=== PATIENT | female | born 1980 ===

== ENCOUNTER 2020-03-02 21:27 | Emergency (ER) | payer OTHER, SELFPAY ==
--- NOTE | 2020-03-02 21:44 | PC.NURSE ---
Patient is sitting in room 13. [employer] is in the room with the patient.
[2020-03-02 21:51] VITALS: BP 145/76; PULSE 104; RESP 16; O2SAT 100
[2020-03-02 21:52] VITALS: TEMP 36.8
[2020-03-02 22:02] LABS: Ur Creatinine 20 (Normal); Ur Specific Gravity 1.025 (Normal); Urine pH 5 (Normal)
[2020-03-02 22:04] LABS: UR Morphine/Opiate cutoff 300 Negative (Negative); Urine Amphetamines Negative (Negative); Urine Barbiturates Negative (Negative); Urine Benzodiazepines Negative (Negative); Urine Cocaine Negative (Negative); Urine MDMA Negative (Negative); Urine Methadone Negative (Negative); Urine Methamphetamines Negative (Negative); Urine Oxycodone Negative (Negative); Urine Phencyclidine Negative (Negative); Urine Tetrahydrocannabinol Negative (Negative); Urine Tricyclic Antidepressant Positive (Negative)
--- NOTE | 2020-03-02 22:18 | PC.NURSE ---
Patient is sitting up on the bed in room 13. She is calm and compliant. She currently has warm blankets.
[2020-03-02 22:26] LABS: Acetaminophen < 10 ug/mL (10-30); Alanine Aminotransferase 9 IU/L (<35); Albumin 3.7 g/dL (3.5-5.0); Albumin Globulin Ratio 1.3 (1.0-2.8); Alkaline Phosphatase 67 U/L (38-126); Aspartate Aminotransferase 26 IU/L (14-36); BUN Creatinine Ratio 18.6 (6-22); Bilirubin Total 0.4 mg/dL (0.2-1.3); Blood Urea Nitrogen 13 mg/dL (7-17); Calcium 8.4 mg/dL (8.4-10.2); Carbon Dioxide 22 mmol/L (22-32); Chloride 107 mmol/L (98-107); Estimated Glomerular Filt Rate > 60.0 mL/min (>60); Ethanol (ETOH) < 10 mg/dL; Globulin 2.8 g/dL (1.7-4.1); Glucose 118 mg/dL (70-100); HEMOLYSIS < 15 (0-50); Potassium 4.3 mmol/L (3.4-5.1); Salicylate < 1.0 mg/dL (<20); Sodium 135 mmol/L (137-145); Total Protein 6.5 g/dL (6.3-8.2)
--- NOTE | 2020-03-02 22:28 | PC.NURSE ---
Pt speaking calmly with mother on the phone. Maggie: [phone]
[2020-03-02 22:29] LABS: Hematocrit 25.1 % (36-46); Hemoglobin 7.8 g/dL (12.0-16.0); Mean Corpuscular HGB Conc 31.1 % (30-36); Mean Corpuscular Hemoglobin 21.8 PG (26-34); Mean Corpuscular Volume 70.2 fL (80-100); Platelet Count 252 X10^3/uL (150-400); Red Blood Cell Count 3.58 X10^6/uL (4.0-5.2); Red Cell Distribution Width 26.3 % (11.6-14.8); White Blood Cell Count 13.1 X10^3/uL (4.5-11.0)
[2020-03-02 22:30] LABS: Add Manual Diff / Slide Review YES
--- NOTE | 2020-03-02 22:58 | PC.NURSE ---
Pt. standing in the doorway of her room, looking towards the ambulance bay doors.
[2020-03-02 23:03] LABS: Free T4, Direct Thyroxine 0.61 ng/dL (0.78-2.19)
[2020-03-02 23:20] LABS: Thyroid Stimulating Hormone 1.83 uIU/mL (0.47-4.68)
--- NOTE | 2020-03-02 23:20 | PC.NURSE ---
Verified with Dr. Cueto that all PO doses of Prazosin and Seroquel were appropriate.
--- NOTE | 2020-03-02 23:23 | ED_ITS ---
HPI - Psych <Rudy Cueto DO - Last Filed: 03/03/20 21:39> General Chief Complaint: Psychiatric Symptoms Stated Complaint: brought by police Time Seen by Provider: 03/02/20 21:30 Source: patient and police Mode of arrival: Ambulatory Limitations: no limitations History of Present Illness HPI Narrative: 39F smoker with extensive mental health and self harm history as well as anemia presents with police for JUAN. She cut herself in her left arm multiple times and also was trying to drive to the bridge to jump in an effort to kill herself. She cuts herself frequently and states that her hemoglobin often runs in the sevens but it dropped into the 5s are 6 is a few weeks ago and she required a transfusion. She is not dizzy nor weak or lightheaded. She denies any chest pain or shortness of breath. Through nursing I have been told that her trigger is a recent legal case in which she was apparently charged with felony assault. She is under the care of a mental health provider at the [place] and speaks to him weekly. She's been taking her medications as directed. She continues to feel suicidal and states that if she leaves she will jump of the bridge. MD complaint: suicidal ideation and feels depressed Onset (ago): hour(s) Duration: intermittent History of same: Yes Relieving factors: none Exacerbating factors: other Context: significant life stressor Associated psychiatric symptoms: depression and suicidal ideation Associated symptoms: denies other symptoms Treatments prior to arrival: placed on mental health hold If self harm: admits thoughts of self harm, has plan, has acted on plan and self-inflicted trauma Related Data Allergies Allergy/AdvReac Type Severity Reaction Status Date / Time No Known Drug Allergies Allergy Verified 03/03/20 00:29 Review of Systems <Rudy Cueto DO - Last Filed: 03/03/20 21:39> Constitutional Constitutional: Denies chills, Denies fatigue, Denies fever(s), Denies frequent falls, Denies lethargy and Denies weakness Eyes Eyes: Denies change in vision, Denies eye discharge, Denies irritation and Denies loss of vision ENT Ears, Nose, Mouth, and Throat: Denies change in voice, Denies dizziness, Denies neck pain, Denies sore throat and Denies throat swelling Cardiovascular Cardiovascular: Denies chest pain, Denies irregular heart rhythm, Denies lightheadedness, Denies palpitations, Denies dyspnea, Denies dyspnea on exertion and Denies orthopnea Respiratory Respiratory: Denies cough, Denies dyspnea, Denies dyspnea on exertion and Denies wheezing Gastrointestinal Gastrointestinal: Denies abdominal pain, Denies change in bowel habits, Denies diarrhea, Denies nausea and Denies vomiting Musculoskeletal Musculoskeletal: Denies neck pain and Denies numbness Integumentary/Breasts Skin/Breast: Denies pruritus, Denies erythema, Denies rash and Reports wounds Neurologic Neurologic: Denies behavioral changes, Denies confusion, Denies dizziness, Denies frequent falls, Denies loss of vision, Denies numbness and Denies weakness Psychiatric Psychiatric: Denies anxiety, Denies behavioral changes, Denies confusion, Re ports depression, Denies homicidal ideation and Reports suicidal ideation Endocrine Endocrine: Denies fatigue, Denies flushing and Denies palpitations Hematologic/Lymphatic Hematologic/Lymphatic: Denies easy bruising Allergic/Immunologic Allergic/Immunologic: Denies urticaria, Denies throat swelling and Denies wheezing Patient History <Rudy Cueto DO - Last Filed: 03/03/20 21:39> Social History Smoking Status: Current every day smoker Smoking Status: Current every day smoker Substance Use Type: does not use Exam <Rudy Cueto DO - Last Filed: 03/03/20 21:39> Narrative Exam Narrative: GENERAL: [39] year old patient appears stated age. Flat affect. Well-nourished, well-developed patient, in mild distress. HEAD: Atraumatic. Normocephalic. EYES: Pupils equal round and reactive. Extraocular motions intact. No scleral icterus. No injection or drainage. ENT: Nose without bleeding, purulent drainage. Throat without erythema, tonsillar hypertrophy or exudate. Airway patent. NECK: Trachea midline. Non tender CARDIOVASCULAR: Regular rate and rhythm without murmurs, gallops, or rubs. RESPIRATORY: Clear to auscultation. Breath sounds equal bilaterally. No wheezes, rales, or rhonchi. GASTROINTESTINAL: Abdomen soft, non-tender, nondistended. EXTREMITIES: innumerable cuts on volar left forearm. No active bleeding. No visualized foreign bodies. No obvious involvement of deep structures. Patient remains N/V intact with full ROM and strength of fingers and wrist. Soft kait rments.. BACK: Nontender without deformity or crepitance. No flank tenderness. NEURO: AOx3. SKIN: No rash or erythema of visible areas Initial Vital Signs Initial Vital Signs: Vital Signs Pulse Rate 104 H 03/02/20 21:51 Respiratory Rate 16 03/02/20 21:51 Blood Pressure 145/76 H 03/02/20 21:51 Pulse Oximetry 100 03/02/20 21:51 <Tracy Garza, DO - Last Filed: 03/03/20 13:09> Initial Vital Signs Initial Vital Signs: Vital Signs Pulse Rate 104 H 03/02/20 21:51 Respiratory Rate 16 03/02/20 21:51 Blood Pressure 145/76 H 03/02/20 21:51 Pulse Oximetry 100 03/02/20 21:51 Course <Rudy Cueto DO - Last Filed: 03/03/20 21:39> Course Course Narrative: 2345 - patient night meds ordered, she was hitting her head on the wall and was able to be redirected to her bed, with the promise of her upcoming medications. Her labs and recent visit to [facility] have been requested 0600 - patient with stable H/H at her baseline. No active bleeding. She is resting comfortably. Still suicidal with plan. She is medically cleared for [facility] dispatch. In my opinion she will need hospitalization for stabilization of her condition Orders Ordered: Discontinued Medications Clonazepam (Clonazepam 0.5 Mg Tablet) 1 mg PO NOW ONE Stop: 03/02/20 23:24 Last Admin: 03/03/20 00:27 Dose: Not Given Documented by: JULITO Lorazepam (Lorazepam 2 Mg/Ml Inj) 1 mg IM NOW ONE Stop: 03/02/20 23:52 Last Admin: 03/02/20 23:40 Dose: 1 mg Documented by: JULITO Prazosin HCl (Prazosin 1 Mg Capsule) 5 mg PO BEDTIME [facility] Last Admin: 03/02/20 23:51 Dose: 5 mg Documented by: JULITO Quetiapine Fumarate (Quetiapine 100 Mg Tablet) 600 mg PO BEDTIME [facility] Last Admin: 03/03/20 00:26 Dose: 600 mg Documented by: JULITO Vital Signs Vital signs: Vital Signs - 8 hr 03/03/20 06:30 12/19/20 09:19 03/03/20 09:30 Pulse Rate 96 H 87 Respiratory Rate 16 16 Blood Pressure 106/46 L 112/58 L Pulse Oximetry 95 98 <Tracy Garza DO - Last Filed: 03/03/20 13:09> Orders Ordered: Discontinued Medications Clonazepam (Clonazepam 0.5 Mg Tablet) 1 mg PO NOW ONE Stop: 03/02/20 23:24 Last Admin: 03/03/20 00:27 Dose: Not Given Documented by: JULITO Lorazepam (Lorazepam 2 Mg/Ml Inj) 1 mg IM NOW ONE Stop: 03/02/20 23:52 Last Admin: 03/02/20 23:40 Dose: 1 mg Documented by: JULITO Prazosin HCl (Prazosin 1 Mg Capsule) 5 mg PO BEDTIME [facility] Last Admin: 03/02/20 23:51 Dose: 5 mg Documented by: JULITO Quetiapine Fumarate (Quetiapine 100 Mg Tablet) 600 mg PO BEDTIME [facility] Last Admin: 03/03/20 00:26 Dose: 600 mg Documented by: JULITO Vital Signs Vital signs: Vital Signs - 8 hr 03/03/20 06:30 03/03/20 09:19 03/03/20 09:30 Pulse Rate 96 H 87 Respiratory Rate 16 16 Blood Pressure 106/46 L 112/58 L Pulse Oximetry 95 98 MDM - Psych <Rudy Cueto DO - Last Filed: 03/03/20 21:39> Medical Records Attestation: I reviewed the patient's medical records. Lab Data Attestation: I reviewed the patient's lab results. Lab results narrative: labs and note reviewed from recent visit to [facility]. Result diagrams: 03/03/20 01:00 03/02/20 22:07 Labs: Lab Results 03/02/20 03/02/20 03/02/20 Range/Units 21:45 22:07 22:07 WBC 13.1 H (4.5-11.0) X10^3/uL RBC 3.58 L (4.0-5.2) X10^6/uL Hgb 7.8 L (12.0-16.0) g/dL Hct 25.1 L (36-46) % MCV 70.2 L (80-100) fL MCH 21.8 L (26-34) PG MCHC 31.1 (30-36) % RDW 26.3 H (11.6-14.8) % Plt Count 252 (150-400) X10^3/uL Neut % (Auto) Not Reportable Lymph % (Auto) Not Reportable [place] % (Auto) Not Reportable Eos % (Auto) Not Reportable Baso % (Auto) Not Reportable Lymph # (Auto) Not Reportable [place] # (Auto) Not Reportable Baso # (Auto) Not Reportable Total Counted 100 Seg Neutrophils % 71.0 H (38-70) % Band Neutrophils % 1.0 L (3-7) % Lymphocytes % (Manual) 21.0 L (25-45) % Monocytes % (Manual) 2.0 (2-11) % Eosinophils % (Manual) 1.0 L (2-4) % Basophils % (Manual) 3.0 H (0-1) % Myelocytes % 1.0 H (-0) % Neutrophils # (Manual) 9432 H (9877-1796) /uL RBC Morphology See below Hypochromasia 2+ H Anisocytosis 3+ H Ovalocytes 1+ H Schistocytes 1+ H Sodium 135 L (137-145) mmol/L Potassium 4.3 (3.4-5.1) mmol/L Chloride 107 (98-107) mmol/L Carbon Dioxide 22 (22-32) mmol/L BUN 13 (7-17) mg/dL Creatinine 0.70 (0.52-1.04) mg/dL Estimated GFR > 60.0 (>60) mL/min BUN/Creatinine Ratio 18.6 (6-22) Glucose 118 H (70-100) mg/dL Calcium 8.4 (8.4-10.2) mg/dL Total Bilirubin 0.4 (0.2-1.3) mg/dL AST 26 (14-36) IU/L ALT 9 (<35) IU/L Alkaline Phosphatase 67 (38-126) U/L Total Protein 6.5 (6.3-8.2) g/dL Albumin 3.7 (3.5-5.0) g/dL Globulin 2.8 (1.7-4.1) g/dL Albumin/Globulin Ratio 1.3 (1.0-2.8) TSH (0.47-4.68) uIU/mL Free T4 (0.78-2.19) ng/dL Salicylates < 1.0 (<20) mg/dL U Opiates 300ng/mL cut Negative (Negative) Ur Oxycodone Screen Negative (Negative) Urine Methadone Screen Negative (Negative) Acetaminophen < 10 L (10-30) ug/mL Ur Barbiturates Screen Negative (Negative) U Tricyclic Antidepress Positive H (Negative) Ur Phencyclidine Scrn Negative (Negative) Ur Amphetamines Screen Negative (Negative) U Methamphetamines Scrn Negative (Negative) Ur MDMA Scrn (Ecstasy) Negative (Negative) U Benzodiazepines Scrn Negative (Negative) Urine Cocaine Screen Negative (Negative) U Marijuana (THC) Screen Negative (Negative) Ethyl Alcohol < 10 ( - 10) mg/dL COVID-19 PCR (Negative) 03/02/20 03/03/20 03/03/20 Range/Units 22:07 01:00 06:30 WBC (4.5-11.0) X10^3/uL RBC (4.0-5.2) X10^6/uL Hgb 7.5 L (12.0-16.0) g/dL Hct 23.9 L (36-46) % MCV (80-100) fL MCH (26-34) PG MCHC (30-36) % RDW (11.6-14.8) % Plt Count (150-400) X10^3/uL Neut % (Auto) Lymph % (Auto) [place] % (Auto) Eos % (Auto) Baso % (Auto) Lymph # (Auto) [place] # (Auto) Baso # (Auto) Total Counted Seg Neutrophils % (38-70) % Band Neutrophils % (3-7) % Lymphocytes % (Manual) (25-45) % Monocytes % (Manual) (2-11) % Eosinophils % (Manual) (2-4) % Basophils % (Manual) (0-1) % Myelocytes % (-0) % Neutrophils # (Manual) (4520-4669) /uL RBC Morphology Hypochromasia Anisocytosis Ovalocytes Schistocytes Sodium (137-145) mmol/L Potassium (3.4-5.1) mmol/L Chloride (98-107) mmol/L Carbon Dioxide (22-32) mmol/L BUN (7-17) mg/dL Creatinine (0.52-1.04) mg/dL Estimated GFR (>60) mL/min BUN/Creatinine Ratio (6-22) Glucose (70-100) mg/dL Calcium (8.4-10.2) mg/dL Total Bilirubin (0.2-1.3) mg/dL AST (14-36) IU/L ALT (<35) IU/L Alkaline Phosphatase (38-126) U/L Total Protein (6.3-8.2) g/dL Albumin (3.5-5.0) g/dL Globulin (1.7-4.1) g/dL Albumin/Globulin Ratio (1.0-2.8) TSH 1.83 (0.47-4.68) uIU/mL Free T4 0.61 L (0.78-2.19) ng/dL Salicylates (<20) mg/dL U Opiates 300ng/mL cut (Negative) Ur Oxycodone Screen (Negative) Urine Methadone Screen (Negative) Acetaminophen (10-30) ug/mL Ur Barbiturates Screen (Negative) U Tricyclic Antidepress (Negative) Ur Phencyclidine Scrn (Negative) Ur Amphetamines Screen (Negative) U Methamphetamines Scrn (Negative) Ur MDMA Scrn (Ecstasy) (Negative) U Benzodiazepines Scrn (Negative) Urine Cocaine Screen (Negative) U Marijuana (THC) Screen (Negative) Ethyl Alcohol ( - 10) mg/dL COVID-19 PCR Negative (Negative) Point of Care Testing Test Results Negative Urine Dip Bedside Urine Glucose Negative Bedside Urine Bilirubin - Negative Bedside Urine Ketone - Negative Urine Specific Zahl 1.025 Bedside Urine Occult Blood - Negative Bedside Urine pH 6.0 Bedside Urine Protein - Negative Bedside Urine Urobilinogen - Negative Bedside Urine Nitrite - Negative Bedside Urine Leukocytes - Negative Esterase <Tracy Garza, DO - Last Filed: 03/03/20 13:09> Lab Data Labs: Lab Results 03/02/20 03/02/20 03/02/20 Range/Units 21:45 22:07 22:07 WBC 13.1 H (4.5-11.0) X10^3/uL RBC 3.58 L (4.0-5.2) X10^6/uL Hgb 7.8 L (12.0-16.0) g/dL Hct 25.1 L (36-46) % MCV 70.2 L (80-100) fL MCH 21.8 L (26-34) PG MCHC 31.1 (30-36) % RDW 26.3 H (11.6-14.8) % Plt Count 252 (150-400) X10^3/uL Neut % (Auto) Not Reportable Lymph % (Auto) Not Reportable [place] % (Auto) Not Reportable Eos % (Auto) Not Reportable Baso % (Auto) Not Reportable Lymph # (Auto) Not Reportable [place] # (Auto) Not Reportable Baso # (Auto) Not Reportable Total Counted 100 Seg Neutrophils % 71.0 H (38-70) % Band Neutrophils % 1.0 L (3-7) % Lymphocytes % (Manual) 21.0 L (25-45) % Monocytes % (Manual) 2.0 (2-11) % Eosinophils % (Manual) 1.0 L (2-4) % Basophils % (Manual) 3.0 H (0-1) % Myelocytes % 1.0 H (-0) % Neutrophils # (Manual) 9432 H (5561-7616) /uL RBC Morphology See below Hypochromasia 2+ H Anisocytosis 3+ H Ovalocytes 1+ H Schistocytes 1+ H Sodium 135 L (137-145) mmol/L Potassium 4.3 (3.4-5.1) mmol/L Chloride 107 (98-107) mmol/L Carbon Dioxide 22 (22-32) mmol/L BUN 13 (7-17) mg/dL Creatinine 0.70 (0.52-1.04) mg/dL Estimated GFR > 60.0 (>60) mL/min BUN/Creatinine Ratio 18.6 (6-22) Glucose 118 H (70-100) mg/dL Calcium 8.4 (8.4-10.2) mg/dL Total Bilirubin 0.4 (0.2-1.3) mg/dL AST 26 (14-36) IU/L ALT 9 (<35) IU/L Alkaline Phosphatase 67 (38-126) U/L Total Protein 6.5 (6.3-8.2) g/dL Albumin 3.7 (3.5-5.0) g/dL Globulin 2.8 (1.7-4.1) g/dL Albumin/Globulin Ratio 1.3 (1.0-2.8) TSH (0.47-4.68) uIU/mL Free T4 (0.78-2.19) ng/dL Salicylates < 1.0 (<20) mg/dL U Opiates 300ng/mL cut Negative (Negative) Ur Oxycodone Screen Negative (Negative) Urine Methadone Screen Negative (Negative) Acetaminophen < 10 L (10-30) ug/mL Ur Barbiturates Screen Negative (Negative) U Tricyclic Antidepress Positive H (Negative) Ur Phencyclidine Scrn Negative (Negative) Ur Amphetamines Screen Negative (Negative) U Methamphetamines Scrn Negative (Negative) Ur MDMA Scrn (Ecstasy) Negative (Negative) U Benzodiazepines Scrn Negative (Negative) Urine Cocaine Screen Negative (Negative) U Marijuana (THC) Screen Negative (Negative) Ethyl Alcohol < 10 ( - 10) mg/dL COVID-19 PCR (Negative) 03/02/20 03/03/20 03/03/20 Range/Units 22:07 01:00 06:30 WBC (4.5-11.0) X10^3/uL RBC (4.0-5.2) X10^6/uL Hgb 7.5 L (12.0-16.0) g/dL Hct 23.9 L (36-46) % MCV (80-100) fL MCH (26-34) PG MCHC (30-36) % RDW (11.6-14.8) % Plt Count (150-400) X10^3/uL Neut % (Auto) Lymph % (Auto) [place] % (Auto) Eos % (Auto) Baso % (Auto) Lymph # (Auto) [place] # (Auto) Baso # (Auto) Total Counted Seg Neutrophils % (38-70) % Band Neutrophils % (3-7) % Lymphocytes % (Manual) (25-45) % Monocytes % (Manual) (2-11) % Eosinophils % (Manual) (2-4) % Basophils % (Manual) (0-1) % Myelocytes % (-0) % Neutrophils # (Manual) (1283-3977) /uL RBC Morphology Hypochromasia Anisocytosis Ovalocytes Schistocytes Sodium (137-145) mmol/L Potassium (3.4-5.1) mmol/L Chloride (98-107) mmol/L Carbon Dioxide (22-32) mmol/L BUN (7-17) mg/dL Creatinine (0.52-1.04) mg/dL Estimated GFR (>60) mL/min BUN/Creatinine Ratio (6-22) Glucose (70-100) mg/dL Calcium (8.4-10.2) mg/dL Total Bilirubin (0.2-1.3) mg/dL AST (14-36) IU/L ALT (<35) IU/L Alkaline Phosphatase (38-126) U/L Total Protein (6.3-8.2) g/dL Albumin (3.5-5.0) g/dL Globulin (1.7-4.1) g/dL Albumin/Globulin Ratio (1.0-2.8) TSH 1.83 (0.47-4.68) uIU/mL Free T4 0.61 L (0.78-2.19) ng/dL Salicylates (<20) mg/dL U Opiates 300ng/mL cut (Negative) Ur Oxycodone Screen (Negative) Urine Methadone Screen (Negative) Acetaminophen (10-30) ug/mL Ur Barbiturates Screen (Negative) U Tricyclic Antidepress (Negative) Ur Phencyclidine Scrn (Negative) Ur Amphetamines Screen (Negative) U Methamphetamines Scrn (Negative) Ur MDMA Scrn (Ecstasy) (Negative) U Benzodiazepines Scrn (Negative) Urine Cocaine Screen (Negative) U Marijuana (THC) Screen (Negative) Ethyl Alcohol ( - 10) mg/dL COVID-19 PCR Negative (Negative) Point of Care Testing Test Results Negative Urine Dip Bedside Urine Glucose Negative Bedside Urine Bilirubin - Negative Bedside Urine Ketone - Negative Urine Specific Zahl 1.025 Bedside Urine Occult Blood - Negative Bedside Urine pH 6.0 Bedside Urine Protein - Negative Bedside Urine Urobilinogen - Negative Bedside Urine Nitrite - Negative Bedside Urine Leukocytes - Negative Esterase MDM Narrative Medical decision making narrative: Elsy Guerin spoke with patient. She states that patient is baseline suicidal she has frequent hospitalizations frequent attempts. She is a court appearance to determine competency in 2 days trying to get her into a residential home. She thinks patient needs to make this appearance so that she can have a long-term plan. At this time she states that there is a safety plan at patient lives home alone people will be checking on her. She states that she is not suicidal this morning. I have spoken with mother who states that she called her 3 times a day. Patient states that she has bonded to go to the court hearing on Thursday. She has numerous suicidal out reach programs which she has used in the past. She states that she was so overwhelmed last evening with a court case at that she thought to may off a bridge was the best option. She no longer feels that way. Today she feels like she has typical home cook and clean and get ready for her sister to come from [place]. At this time she agrees to contract for safety. Restraint [id number] <Rudy Cueto, DO - Last Filed: 03/03/20 21:39> Restraint [id number] Evaluation [id number]-[id number] #1: Date: 03/02/20 Time: 21:35 Patient Appearance: Well Groomed Level of Consciousness: Alert Speech Pattern: Monotone, Mumbled, Soft-Spoken and Spontaneous Speech Mood Description: Depressed and Flat Ability to Follow Directions: Good Hallucination Type: None Cardiac: Regular Rate Circulation: Moves all extremities Behavior necessitating restraint: Attempt to self harm Restraint risks explained to patient: No Restraint risks explained to family: No Reaction to Intervention: Awake, Resting Quietly Restraint Needs: Continue Restraints Discharge Plan Departure Patient Disposition: Home Clinical Impression: Suicidal ideation Instructions: DI for Suicidal Ideation-Adult Activity Restrictions/Additional Instructions: *You have been diagnosed with suicidal ideations *What to do: If you are feeling suicidal or having suicidal thoughts: Call: Suicide Hotline: Visit: www.[facility].org Text: 440335 *Continue to take medications as directed *Follow up with your primary care provider in 2-3 days *Return to ER if you should have thoughts of harming self, or any new, worsening or concerning symptoms Referrals: [facility] Kit Pacheco [Outside]
--- NOTE | 2020-03-02 23:32 | PC.NURSE ---
Patient pacing and hitting wall at [id number]
--- NOTE | 2020-03-02 23:34 | PC.NURSE ---
Doctor and RN went into room to see if there was anything they could get the patient to keep her from banging her hand against the wall. Rn asked patient if she would take a seat on the bed, and she followed instruction.
[2020-03-02 23:40] LABS: Neutrophils Absolute Manual 9432 /uL (3000-5900); Total Cells Counted 100
[2020-03-02] MEDS: LORazepam 2 MG/ML INJ 1 MG IM (23:40)
[2020-03-02 23:41] LABS: Anisocytosis 3+; Hypochromasia 2+; Ovalocytes 1+; Schistocytes 1+
[2020-03-02] MEDS: PRAZOSIN 1 MG CAPSULE 5 MG PO (23:51)
--- NOTE | 2020-03-03 00:01 | PC.NURSE ---
Patient is sitting in room 13 on her bed. She is calm and complaint at this time.
[2020-03-03] MEDS: QUETIAPINE 100 MG TABLET 600 MG PO (00:26)
[2020-03-03 01:17] LABS: Hematocrit 23.9 % (36-46); Hemoglobin 7.5 g/dL (12.0-16.0)
[2020-03-03 06:30] VITALS: BP 106/46; PULSE 96; RESP 16; O2SAT 95
--- NOTE | 2020-03-03 07:23 | PC.NURSE ---
When PT used bathroom PERL PROGRAMMER noticed a bandage on the left upper thigh. Alejandro was notified.
[2020-03-03 07:27] LABS: COVID19 -Nasal RAPID Negative (Negative)
--- NOTE | 2020-03-03 07:51 | PC.NURSE ---
patient sleeping, door open, sitter at doorway.
--- NOTE | 2020-03-03 07:52 | PC.NURSE ---
patient sleeping, door open, sitter at doorway
--- NOTE | 2020-03-03 07:52 | PC.NURSE ---
emily sleeping, door open, sitter at doorway
--- NOTE | 2020-03-03 07:53 | PC.NURSE ---
emily allowed to sleep, door open, sitter at doorway
--- NOTE | 2020-03-03 08:05 | PC.NURSE ---
Patient speaking to DCR on telehealth tablet. TOMÁS Brown
--- NOTE | 2020-03-03 08:11 | PC.NURSE ---
patient speaking on phone with DCR
--- NOTE | 2020-03-03 08:17 | PC.NURSE ---
speaking on tablet with DCR, Breakfast at bedside.
--- NOTE | 2020-03-03 08:18 | PC.NURSE ---
patient allowed to sleep, door open, sitter at doorway
--- NOTE | 2020-03-03 08:26 | PC.NURSE ---
Patient on telehealth video chat with DCR
--- NOTE | 2020-03-03 08:27 | PC.NURSE ---
Patient reports DCR is contacting her mom and she believes she is going home today with her mom and a plan for safety.
--- NOTE | 2020-03-03 08:32 | PC.NURSE ---
patient talking with DCR over ipad, calm and compliant
--- NOTE | 2020-03-03 08:46 | PC.NURSE ---
0877 Elsy DCR called back for Dr. Garza who will call her back. Elsy states the patients mother is going to keep an eye on pt. Pt has court on Thursday and is compliant with DCR over the ipad. [id number] Garza who is calling Elsy now.
[2020-03-03 09:19] VITALS: PULSE 87; RESP 16; O2SAT 98
[2020-03-03 09:30] VITALS: BP 112/58
--- NOTE | 2020-03-03 10:04 | PC.NURSE ---
left arm forearm cleansed with hibiclens and water. non adherant dressing , kerlix. tolerated well. wounds were assessed by Aylin Allen. I assisted with holding forearm only.
--- NOTE | 2020-03-03 10:08 | PC.NURSE ---
I took the patients soaked bandage off of her L forearm and dried pt's arm. Used alcohol on old, dried blood on the opposite side of her wounds. I put non adherent bandages followed by wrapping gauze and then coban. I instructed patient on re wrapping her wounds.
== END 2020-03-03 10:08 | disposition home or self-care (01) ==
PROVIDERS: Emergency Medicine; Emergency Provider Emergency Medicine
DX: T14.91XA Suicide attempt, initial encounter (principal)
CPT/HCPCS: 36415; 80053; 80305; 80320; 80329; 81003; 81025; 84439; 84443; 85007; 85014; 85018; 85025; 87635; 96372; 99284; 99285; G0480; J2060